=== PATIENT | male | born 1990 | race Hispanic/Latino ===

== ENCOUNTER → 2017-11-18 | Outpatient (REF) | payer OTHER, MEDICAID ==
[2017-11-18 16:09] LABS: ALBUMIN 3.9 GM/DL (3.2-5.2); ALBUMIN/GLOBULIN RATIO 1.03 (1.00-1.93); ALKALINE PHOSPHATASE 85 U/L (45-117); ALT/SGPT 55 U/L (12-78); ANION GAP 7 MEQ/L (8-16); AST/SGOT 23 U/L (7-37); BILIRUBIN,TOTAL 0.4 MG/DL (0.2-1.0); BLOOD UREA NITROGEN 14 MG/DL (7-18); CALCIUM LEVEL 8.8 MG/DL (8.5-10.1); CARBON DIOXIDE LEVEL 26 MEQ/L (21-32); CHLORIDE LEVEL 109 MEQ/L (98-107); CHOLESTEROL LEVEL 146 MG/DL (<200); CHOLESTEROL RISK RATIO 2.979 (<5); CREATININE FOR GFR 1.06 MG/DL (0.70-1.30); GLOMERULAR FILTRATION RATE > 60.0 (>60); GLUCOSE, FASTING 100 MG/DL (70-105); HDL CHOLESTEROL 49 MG/DL (>40); NON-HDL-C 97 MG/DL; POTASSIUM SERUM 4.5 MEQ/L (3.5-5.1); SODIUM LEVEL 142 MEQ/L (136-145); TOTAL PROTEIN 7.7 GM/DL (6.4-8.2); TRIGLYCERIDES LEVEL 85 MG/DL (<150)
== END ==
LOC: M LAB REF 15:27
DX: Z83.3 Family history of diabetes mellitus (principal)
CPT/HCPCS: 84443

== ENCOUNTER 2019-12-13 08:21 | Emergency (ER) | payer MEDICAID, OTHER ==
[~2019-12-13] VITALS: Ht 165.1 cm; Wt 104.2 kg
[2019-12-13] MEDS ORDERED: BENA25CA4 PO (08:44)
[2019-12-13] MEDS ORDERED: FAMOTIDINE INJ 20MG/2ML VIAL (S0028) IVP ONE (09:00)
[2019-12-13] MEDS ORDERED: dexameTHASONE 20 MG/5 ML VIAL (J1100) IV ONE (09:00)
[2019-12-13 09:51] LABS: ALBUMIN 3.7 GM/DL (3.2-5.2); ALT/SGPT 115 U/L (12-78); BILIRUBIN,DIRECT < 0.1 MG/DL (0.0-0.2); BILIRUBIN,TOTAL 0.4 MG/DL (0.2-1.0); BLOOD UREA NITROGEN 15 MG/DL (7-18); C REACTIVE PROTEIN QUANTITATIV 0.75 MG/DL (0.00-0.30); CALCIUM LEVEL 8.5 MG/DL (8.5-10.1); CARBON DIOXIDE LEVEL 27 MEQ/L (21-32); CHLORIDE LEVEL 107 MEQ/L (98-107); COMPLEMENT C4 45 MG/DL (10-40); CREATININE FOR GFR 0.97 MG/DL (0.70-1.30); GLOMERULAR FILTRATION RATE > 60.0 (>60); GLUCOSE, FASTING 126 MG/DL (70-100); POTASSIUM SERUM 4.1 MEQ/L (3.5-5.1); SODIUM LEVEL 139 MEQ/L (136-145); TOTAL PROTEIN 7.3 GM/DL (6.4-8.2)
[2019-12-13 11:19] VITALS: BP 129/70
[2019-12-16 00:07] LABS: TRYPTASE 8.2 ug/L (2.2-13.2)
== END 2019-12-13 11:33 | disposition home or self-care (01) ==
LOC: M ED 08:21
DX: R22.0 Localized swelling, mass and lump, head (principal); T78.40XA Allergy, unspecified, initial encounter
CPT/HCPCS: 80048; 80076; 83519; 85280; 86140; 86160; 86161; 96374; 96375; 99284; J1100

== ENCOUNTER → 2025-02-23 | Outpatient (REF) | payer OTHER ==
[~2025-02-23] MED LIST: BENA25CA4 PO
== END ==
LOC: M LAB REF 21:33
PROVIDERS: ATTEND Physician Assistant
DX: B34.9 Viral infection, unspecified (principal)